=== PATIENT | female | born 1950 | race American Indian/Alaskan Native ===

== ENCOUNTER 2018-07-24 09:57 | Day surgery (SDC) | payer MEDICARE ==
[~2018-07-24 09:57] MED LIST: IOPIDINE ONE; MYDRIACYL ONE; NEOFRIN ONE
[2018-07-24] MEDS ORDERED: IOPIDINE OD ONE ×2 (11:00→12:06)
[2018-07-24] MEDS ORDERED: NEOFRIN OD ONE (11:00)
[2018-07-24] MEDS ORDERED: MYDRIACYL OD ONE (11:00)
[2018-07-24 11:15] VITALS: BP 118/51
== END 2018-07-24 12:07 | disposition home or self-care (01) ==
LOC: OR 09:57
PROVIDERS: ATTEND Specialist
DX: H26.491 Other secondary cataract, right eye (principal); E78.00 Pure hypercholesterolemia, unspecified; Z85.3 Personal history of malignant neoplasm of breast; Z90.10 Acquired absence of unspecified breast and nipple; Z98.890 Other specified postprocedural states; Z85.89 Personal history of malignant neoplasm of other organs and systems; Z79.899 Other long term (current) drug therapy; Z98.41 Cataract extraction status, right eye; Z98.42 Cataract extraction status, left eye